=== PATIENT | female | born 1975 | race African-American/Black ===

== ENCOUNTER 2021-12-21 10:04 | Emergency (ER) | payer SELFPAY ==
[~2021-12-21] VITALS: Ht 154.9 cm; Wt 74.8 kg
[2021-12-21 10:48] LABS: CLARITY,URINE CLEAR (CLEAR); COLOR,URINE YELLOW (YELLOW); KETONES,URINE NEGATIVE (NEGATIVE); LEUKOCYTE ESTERASE ,URINE NEGATIVE (NEGATIVE); NITRITE,URINE NEGATIVE (NEGATIVE); PROTEIN,URINE DIPSTICK NEGATIVE (NEGATIVE); URINE UROBILINOGEN 0.2 mg/dL (0.2 - 1)
[2021-12-21 11:25] LABS: BACTERIA,URINE RARE /HPF; EPITHELIAL CELLS,URINE FEW /LPF; WBC,URINE (MAN) 0-5 /HPF (0-5)
== END 2021-12-21 12:18 | disposition home or self-care (01) ==
LOC: ER 10:18
DX: R10.31 Right lower quadrant pain (principal); M79.18 Myalgia, other site; I10 Essential (primary) hypertension; F17.210 Nicotine dependence, cigarettes, uncomplicated
CPT/HCPCS: 81001; 81025; 99282